=== PATIENT | female | born 1955 | race Caucasian/White ===

== ENCOUNTER 2018-06-06 09:55 | Day surgery (SDC) | payer MEDICARE, MEDICAID ==
[2018-06-05 15:27] LABS: ALBUMIN 3.7 G/DL (3.4-5.0); ANION GAP 9 (8-16); BLOOD UREA NITROGEN 15 MG/DL (7-18); BUN/CREATININE RATIO 17.2 (6.6-38.0); CALCIUM 9.3 MG/DL (8.5-10.1); CHLORIDE 105 MMOL/L (99-107); CREATININE 0.87 MG/DL (0.40-0.90); GLUCOSE 101 MG/DL (70-104); POTASSIUM 4.2 MMOL/L (3.5-5.1); SODIUM 142 MMOL/L (135-145); TOTAL CARBON DIOXIDE 27.9 MMOL/L (24-32); eGFR 66 ML/MIN
[2018-06-05 15:33] LABS: BASOPHILS % (AUTO) 0.6 % (0-1); EOSINOPHILS # (AUTO) 0.2 X10'3 (0-0.9); EOSINOPHILS % (AUTO) 4.6 % (0-6); HEMATOCRIT 40.7 % (35.0-45.0); HEMOGLOBIN 13.7 g/dl (12.0-16.0); INR 1.1 INR; LYMPHOCYTES # (AUTO) 1.4 X10'3 (1.1-4.8); LYMPHOCYTES % (AUTO) 25.9 % (21-51); MEAN CORPUSCULAR HEMOGLOBIN 30.2 PG (27.0-31.0); MEAN CORPUSCULAR HGB CONC 33.5 % (33.0-36.5); MEAN CORPUSCULAR VOLUME 90.1 FL (78-98); MEAN PLATELET VOLUME 8.6 FL (7.4-10.4); MONOCYTES # (AUTO) 0.2 X10'3 (0-0.9); MONOCYTES % (AUTO) 3.5 % (2-12); NEUTROPHILS # (AUTO) 3.5 X10'3 (1.8-7.7); NEUTROPHILS % (AUTO) 65.4 % (42-75); PLATELET COUNT 170 X10'3 (140-440); RED BLOOD COUNT 4.52 X10'6 (4.20-5.60); RED CELL DISTRIBUTION WIDTH 14.4 % (11.5-14.5); WHITE BLOOD COUNT 5.3 X10'3 (4.5-11.0)
[~2018-06-06] VITALS: Ht 170.2 cm; Wt 56.3 kg
[2018-06-06] VITALS (12 sets, daily range): BP systolic 87–119; BP diastolic 46–75
[2018-06-06] MEDS ORDERED: MIDAZolam 1mg/ml 10ml vial IV ONE (10:20)
[2018-06-06] MEDS ORDERED: amiodarone 150mg/dext, iso-os 100 ML IV ONE (10:20)
[2018-06-06] MEDS ORDERED: morphine 10mg/ml inj. IV ONE (10:20)
[2018-06-06] MEDS ORDERED: diphenhydrAMINE 25mg capsule PO ONE (10:20)
[2018-06-06] MEDS ORDERED: LORazepam 0.5 MG tablet PO ONE (10:20)
[2018-06-06] MEDS ORDERED: normal saline 1000ml 1,000 ML IV PRN (10:20)
[2018-06-06] MEDS ORDERED: atropine 0.1mg/ml 10ml syringe IV PRN (10:25)
[2018-06-06] MEDS ORDERED: TIOT4MIS5 (13:02)
[2018-06-06] MEDS ORDERED: GABA-534 PO (13:02)
[2018-06-06] MEDS ORDERED: LEVO50TA8 PO (13:02)
[2018-06-06] MEDS ORDERED: OMEP20CA10 PO (13:02)
[2018-06-06] MEDS ORDERED: DILT120T4 PO (13:02)
[2018-06-06] MEDS ORDERED: APIX5TAB3 PO (13:02)
[2018-06-06] MEDS ORDERED: ALBU18HF2 INH (13:02)
[2018-06-06] MEDS ORDERED: CHOL10002 PO (13:02)
[2018-06-06] MEDS ORDERED: SERT100T10 PO (13:02)
[2018-06-06] MEDS ORDERED: POTA8CAP9 PO (13:02)
== END 2018-06-06 14:30 | disposition home or self-care (01) ==
LOC: SSTAY O 09:55 → EDSTATUS 12:00 → SSTAY O 14:30
PROVIDERS: ATTEND Internal Medicine Cardiovascular Disease
DX: I48.91 Unspecified atrial fibrillation (principal); J44.9 Chronic obstructive pulmonary disease, unspecified; E03.9 Hypothyroidism, unspecified; I10 Essential (primary) hypertension; G47.33 Obstructive sleep apnea (adult) (pediatric); E66.9 Obesity, unspecified; G89.4 Chronic pain syndrome; I34.1 Nonrheumatic mitral (valve) prolapse; Z85.118 Personal history of other malignant neoplasm of bronchus and lung; F17.210 Nicotine dependence, cigarettes, uncomplicated; Z79.899 Other long term (current) drug therapy; Z88.8 Allergy status to other drugs, medicaments and biological substances
CPT/HCPCS: 36415; 80048; 85025; 85610; 92960; 93005; J0282; J0461; J2250; J2270; J7030; Q0163

== ENCOUNTER 2020-12-02 10:08 | Day surgery (SDC) | payer MEDICARE, MEDICAID ==
[2020-12-01 13:10] LABS: ALBUMIN 3.8 G/DL (3.4-5.0); ANION GAP 7 (8-16); BASOPHILS % (AUTO) 0.5 % (0-1); BLOOD UREA NITROGEN 15 MG/DL (7-18); BUN/CREATININE RATIO 18.8 (6.6-38.0); CALCIUM 9.5 MG/DL (8.5-10.1); CHLORIDE 104 MMOL/L (99-107); EOSINOPHILS # (AUTO) 0.2 X10'3 (0-0.9); EOSINOPHILS % (AUTO) 3.1 % (0-6); GLUCOSE 108 MG/DL (70-104); HEMATOCRIT 44.7 % (35.0-45.0); LYMPHOCYTES # (AUTO) 1.4 X10'3 (1.1-4.8); LYMPHOCYTES % (AUTO) 23.7 % (21-51); MEAN CORPUSCULAR HEMOGLOBIN 31.4 PG (27.0-31.0); MEAN CORPUSCULAR HGB CONC 33.6 g/dL (33.0-36.5); MEAN CORPUSCULAR VOLUME 93.3 FL (78-98); MEAN PLATELET VOLUME 8.2 FL (7.4-10.4); MONOCYTES # (AUTO) 0.3 X10'3 (0-0.9); MONOCYTES % (AUTO) 5.5 % (2-12); NEUTROPHILS % (AUTO) 67.2 % (42-75); PLATELET COUNT 149 X10'3 (140-440); POTASSIUM 4.9 MMOL/L (3.5-5.1); RED BLOOD COUNT 4.79 X10'6 (4.20-5.60); RED CELL DISTRIBUTION WIDTH 13.7 % (11.5-14.5); SODIUM 140 MMOL/L (135-145); TOTAL CARBON DIOXIDE 29.5 MMOL/L (24-32); WHITE BLOOD COUNT 5.9 X10'3 (4.5-11.0); eGFR 72 ML/MIN
[2020-12-02] VITALS (12 sets, daily range): BP systolic 99–130; BP diastolic 55–82
[~2020-12-02] VITALS: Ht 170.2 cm; Wt 59.6 kg
[~2020-12-02 10:08] MED LIST: ALBU18HF2 INH; APIX5TAB3 PO; CHOL10002 PO; DILT120T4 PO; GABA-534 PO; LEVO50TA8 PO; OMEP20CA15 PO; POTA8CAP20 PO; SERT-434 PO; TIOT4MIS5
[2020-12-02] MEDS ORDERED: atropine 0.1mg/ml 10ml syringe IV ONE (10:25)
[2020-12-02] MEDS ORDERED: morphine 10mg/ml inj. IV ONE (10:25)
[2020-12-02] MEDS ORDERED: diphenhydrAMINE 25mg capsule PO ONE (10:25)
[2020-12-02] MEDS ORDERED: amiodarone 150mg/dext, iso-os 100 ML IV ONE (10:25)
[2020-12-02] MEDS ORDERED: MIDAZolam 1mg/ml 10ml vial IV ONE (10:25)
[2020-12-02] MEDS ORDERED: LORazepam 0.5 MG tablet PO ONE (10:25)
[2020-12-02] MEDS ORDERED: CYCL-1 PO (10:34)
[2020-12-02] MEDS ORDERED: FLUT1BLS4 INH (10:38)
[2020-12-02] MEDS ORDERED: GABA-530 PO (10:38)
[2020-12-02] MEDS ORDERED: ACET-2389 PO (10:38)
[2020-12-02] MEDS ORDERED: PROP40TA72 PO (10:38)
[2020-12-02] MEDS ORDERED: PRIM50TA27 PO (10:40)
[2020-12-02] MEDS ORDERED: normal saline 1000ml 1,000 ML IV SCH (10:55)
== END 2020-12-02 12:20 | disposition home or self-care (01) ==
LOC: SSTAY O 10:08
PROVIDERS: ATTEND Internal Medicine Cardiovascular Disease
DX: I48.0 Paroxysmal atrial fibrillation (principal); J44.9 Chronic obstructive pulmonary disease, unspecified; E03.9 Hypothyroidism, unspecified; G47.33 Obstructive sleep apnea (adult) (pediatric); I73.9 Peripheral vascular disease, unspecified; Z87.891 Personal history of nicotine dependence; Z79.01 Long term (current) use of anticoagulants; Z88.8 Allergy status to other drugs, medicaments and biological substances; Z85.05 Personal history of malignant neoplasm of liver; Z79.899 Other long term (current) drug therapy
CPT/HCPCS: 36415; 80048; 85025; 92960; 93005; 94799; J2250; J2270; Q0163